=== PATIENT | female | born 2000 | race Caucasian/White ===

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

== ENCOUNTER 2020-11-09 15:10 | Emergency (ER) | payer OTHER ==
[~2020-11-09 15:10] MED LIST: IBUPROFEN600 MG PO
== END 2020-11-09 18:59 | disposition home or self-care (01) ==
LOC: ER1 15:10
DX: S61.212A Laceration without foreign body of right middle finger without damage to nail, initial encounter (principal); F17.210 Nicotine dependence, cigarettes, uncomplicated; X58.XXXA Exposure to other specified factors, initial encounter; Y92.89 Other specified places as the place of occurrence of the external cause; Y99.0 Civilian activity done for income or pay; Z23 Encounter for immunization
CPT/HCPCS: 12001; 73140; 90471; 90715; 99283